=== PATIENT | male | born 1985 | race Caucasian/White ===

== ENCOUNTER 2021-08-22 09:35 | Observation (INO) | payer OTHER ==
[2021-08-22] MEDS ORDERED: Lasix 40 MG/4 ML IV ONE (10:28)
[2021-08-22] MEDS ORDERED: Lasix 40 MG/4 ML ONE (10:46)
[2021-08-22 11:02] LABS: ALBUMIN 4.5 g/dL (3.5-5.0); ALKALINE PHOSPHATASE 86 U/L (38-126); BLOOD UREA NITROGEN 8 mg/dL (9-20); CHLORIDE 99 mmol/L (98-107); Carbon Dioxide 28 mmol/L (22-30); Creatinine 1 0.59 mg/dL (0.66-1.25); EST GLOMERULAR FILTRATION RATE > 60.0 ML/MIN; Glucose 86 mg/dL (74-106); NT PRO BNP 58.7 pg/mL (0-450); SGOT/AST 40 U/L (17-59); SGPT/ALT 27 U/L (0-50); SODIUM 138 mmol/L (137-145); TROPONIN < 0.012 ng/mL (0.000-0.034); Total Protein 7.8 g/dL (6.3-8.2); Uric Acid 2.7 mg/dL (3.5-7.2)
[2021-08-22 11:15] LABS: Calcium 5.2 mg/dL (8.4-10.2)
[2021-08-22] MEDS ORDERED: Magnesium 1 Gm / 100 Ml D5W*** 100 ML IV ONE ×2 (11:28→12:01)
[2021-08-22] MEDS ORDERED: K-LYTE 25 MEQ PO ONE (11:29)
[2021-08-22] MEDS ORDERED: CALCIUM GLUCONATE IV ONE (11:29)
[2021-08-22] MEDS ORDERED: SODIUM CHLORIDE 0.9% IV ONE (11:29)
[2021-08-22] MEDS ORDERED: Calcium Gluconate 10% 1000 MG IV ONE (11:41)
[2021-08-22] MEDS ORDERED: Sodium Chloride 0.9% 100 ML BAG 100 ML ONE (11:42)
[2021-08-22] MEDS ORDERED: Sodium Chloride 0.9% 1000 ML 1,000 ML ONE (11:42)
[2021-08-22] MEDS ORDERED: K-LYTE 25 MEQ ONE (11:42)
[2021-08-22] MEDS ORDERED: Sodium Chloride 0.9% 1000 ML 1,000 ML IV SCH (11:45)
[2021-08-22] MEDS ORDERED: POTASSIUM CHLORIDE 20 mEq IN WATER 100ML 100 ML IV ONE ×2 (12:01→14:57)
[2021-08-22] MEDS: POTASSIUM CHLORIDE 20 mEq IN WATER 100ML 20 MEQ/100 ML BAG IV SCH ×2 (12:04→14:59)
[2021-08-22 12:27] LABS: Hematocrit 46.5 % (42-50); Hemoglobin 15.8 gm/dl (12.5-18.0); Mean Cell Volume 87.1 fl (78-100); Mean Corpuscular Hemoglobin 29.6 pg (26-32); Mean Platelet Volume 10.4 fl (7.5-11.0); Platelet Count 198 K/mm3 (150-450); Red Blood Count 5.34 M/mm3 (4.1-5.6); Red Cell Distribution Width 12.8 % (11.5-14.0); White Blood Count 5.5 K/mm3 (4.0-10.5)
[2021-08-22 12:44] LABS: MAGNESIUM 1.6 mg/dL (1.6-2.3); PHOSPHOROUS 4.4 mg/dL (2.5-4.5); TSH, 3RD Generation 2.62 mIU/L (0.47-4.68)
--- NOTE | 2021-08-22 12:54 | ERPHSYRPT ---
- History of Present Illness Time Seen by Provider: 08/22/21 10:18 Source: patient Exam Limitations: no limitations Patient Subjective Stated Complaint: H/o htn, c/o swelling to both ankles and feet and high bp since last night. B/P this am at home was 160/120. Triage Nursing Assessment: AAox3, walked in. c/o swelling to both ankles and feet and high bp since last night. Has h/o htn. takes lisinopril 5mg daily. 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 Patient noticed her blood pressure was in 160s despite taking her routine antihypertensive. Feeling weak fatigued and tired. Denies any sick contact. No chest pain palpitations or shortness of breath. Currently his pressure is in 150s. Timing/Duration: day(s) (2), constant, gradual onset, worse Severity: moderate Modifying Factors: Improves With: nothing Associated Symptoms: malaise, weakness Allergies/Adverse Reactions: promethazine HCl [From Phenergan] Adverse Reaction (Verified 08/22/21 15:53) Home Medications: Levothyroxine Sodium [Synthroid] 137 mcg PO HS 08/16/15 [History] calcitrioL [Calcitriol] 0.25 mcg PO TID 08/16/15 [History] Lisinopril 5 mg [Zestril 5 MG] 5 mg PO DAILY 08/22/21 [History] OXcarbazepine [Trileptal] 600 mg PO HS 08/22/21 [History] Hx Tetanus, Diphtheria Vaccination/Date Given: Yes Hx Influenza Vaccination/Date Given: No Hx Pneumococcal Vaccination/Date Given: No Travel Risk - International Travel Have you traveled outside of the country in past 3 weeks: No - Coronavirus Screening Are you exhibiting any of the following symptoms?: No Close contact with a COVID-19 positive Pt in past 14-21 Days: No - Vaccine Status Have you recieved a Covid-19 vaccination: Yes Annual Campaign Manager: Moderna - Vaccination Dates Date of 2cond Vaccination (if applicable): february 2021 - Review of Systems Constitutional: Fatigue, Weakness Eyes: No Symptoms Ears, Nose, & Throat: No Symptoms Respiratory: No Symptoms Cardiac: Edema Abdominal/Gastrointestinal: No Symptoms Genitourinary Symptoms: No Symptoms Musculoskeletal: No Symptoms Skin: No Symptoms Neurological: No Symptoms Psychological: No Symptoms Endocrine: No Symptoms Hematologic/Lymphatic: No Symptoms Immunological/Allergic: No Symptoms - Past Medical History Pertinent Past Medical History: Yes Neurological History: No Pertinent History ENT History: No Pertinent History Cardiac History: High Cholesterol, Hypertension Respiratory History: Bronchitis Endocrine Medical History: Hypothyroidism Musculoskeletal History: No Pertinent History GI Medical History: Irritable Bowel History: No Pertinent History Psycho-Social History: No Pertinent History Male Reproductive Disorders: No Pertinent History Other Medical History: PSEUDO HYPOPARATHYROIDSM - Past Surgical History Past Surgical History: No Neuro Surgical History: No Pertinent History Cardiac: No Pertinent History Respiratory: No Pertinent History Gastrointestinal: No Pertinent History Genitourinary: No Pertinent History Musculoskeletal: No Pertinent History Male Surgical History: No Pertinent History - Social History Smoking Status: Never smoker Exposure to second hand smoke: No Drug Use: none Patient Lives Alone: No - Nursing Vital Signs Nursing Vital Signs: Initial Vital Signs Temperature 97 F 08/22/21 09:41 Pulse Rate 73 08/22/21 09:41 Respiratory Rate 16 08/22/21 09:41 Blood Pressure 165/128 08/22/21 09:41 O2 Sat by Pulse Oximetry 96 08/22/21 09:41 Pain Scale Pain Intensity 0 - Physical Exam General Appearance: no apparent distress, alert Eye Exam: PERRL/EOMI, eyes nml inspection Ears, Nose, Throat Exam: normal ENT inspection, TMs normal, pharynx normal, moist mucous membranes Neck Exam: normal inspection, non-tender, supple, full range of motion Respiratory Exam: normal breath sounds, lungs clear Cardiovascular Exam: regular rate/rhythm, normal heart sounds Gastrointestinal/Abdomen Exam: soft, normal bowel sounds, No tenderness Back Exam: normal inspection, normal range of motion, No CVA tenderness Extremity Exam: other (Bilateral ankle/feet swelling, nonpitting edema. No calf tenderness. Negative Homans' sign.) Neurologic Exam: alert, oriented x 3, cooperative, battery engineer II-XII nml as tested, normal mood/affect, nml cerebellar function, nml station & gait, sensation nml, other (Positive she [place] sign. Carpopedal spasm reproducible with flexing wrist.), No motor deficits Skin Exam: normal color SpO2 Interpretation: normal SpO2: 96 O2 Delivery: Room Air - Course EKG Interpreted by Me: RATE (72), Sinus Rhythm, NORMAL AXIS, NORMAL INTERVALS, Non-specific ST Changes Ordered Tests: Active Orders 24 hr Category Date Time Status Bedrest ROUTINE Activity 08/22/21 15:48 Active Up With Assistance ROUTINE Activity 08/22/21 15:48 Active New Grad Rn STAT Care 08/22/21 10:27 Completed Code Status Order ROUTINE Care 08/22/21 15:48 Active EKG-ER Only STAT Care 08/22/21 10:27 Completed Fall Protocol Q1H Care 08/22/21 15:48 Active IV Care Q6H Care 08/22/21 15:48 Active IV Insertion STAT Care 08/22/21 10:27 Completed POCT Glucose Check ACHS Care 08/22/21 15:[address] in Observation ROUTINE Care 08/22/21 15:48 Active Goyo Hose, Apply ROUTINE Care 08/22/21 15:48 Active Weight,Daily 0600 Care 08/22/21 15:48 Active House Regular Diet Diet 08/22/21 Dinner Active CHEST 1 VIEW (PORTABLE) Stat Exams 08/22/21 10:27 Completed CBC Stat Lab 08/22/21 10:10 Completed CBC W DIFF AM.LAB Lab 08/23/21 04:00 Ordered CMP AM.LAB Lab 08/23/21 04:00 Ordered CMP Routine Lab 08/22/21 10:10 Completed Calcium, Ionized Stat Lab 08/22/21 11:25 Completed MAGNESIUM Stat Lab 08/22/21 11:38 Completed NT PRO BNP Routine Lab 08/22/21 10:10 Completed PHOSPHOROUS Stat Lab 08/22/21 11:38 Completed TROPONIN Q3H Lab 08/22/21 10:10 Completed TROPONIN Q3H Lab 08/22/21 12:55 Completed TROPONIN Q3H Lab 08/22/21 16:00 Completed TROPONIN Q3H Lab 08/22/21 19:20 Completed TROPONIN Q3H Lab 08/22/21 21:03 Completed TSH [TSH, 3RD Generation] Stat Lab 08/22/21 11:38 Completed Uric Acid Routine Lab 08/22/21 10:10 Completed Medication Summary Generic Name Dose Route Start Last Admin Trade Name Freq PRN Reason Stop Dose Admin Acetaminophen 650 mg 08/22/21 15:48 Acetaminophen 325 Mg Tablet PO 09/21/21 15:47 Q4H PRN PRN PAIN AND/OR FEVER Calcium Carbonate 2 tab 08/22/21 22:00 08/22/21 21:52 Calcium Carbonate 500 Mg/Vitamin D 1 Tab Tablet PO 09/21/21 21:59 2 tab QID SELMA Administration Potassium Chloride/Sodium Chloride 1,000 mls @ 100 mls/hr 08/22/21 15:48 08/22/21 18:56 Sodium Chloride 0.9% W/ 20 Meq Kcl/Liter IV 09/21/21 15:47 100 mls/hr .Q10H SELMA Administration Levothyroxine Sodium 25 mcg 08/22/21 22:00 08/22/21 21:52 Levothyroxine Sodium 25 Mcg Tablet PO 09/21/21 21:59 25 mcg HS SELMA Administration Levothyroxine Sodium 112 mcg 08/22/21 22:00 08/22/21 21:52 Levothyroxine Sodium 112 Mcg Tablet PO 09/21/21 21:59 112 mcg HS SELMA Administration Oxcarbazepine 600 mg 08/22/21 22:00 08/22/21 21:52 Oxcarbazepine 300 Mg Tab PO 09/21/21 21:59 600 mg HS SELMA Administration Pantoprazole Sodium 40 mg 08/23/21 10:00 Pantoprazole 40 Mg Vial IV 09/22/21 09:59 Q24H10 SELMA Discontinued Medications Generic Name Dose Route Start Last Admin Trade Name Freq PRN Reason Stop Dose Admin Calcium Carbonate 1 tab 08/22/21 22:00 Calcium Carbonate 500 Mg/Vitamin D 1 Tab Tablet PO 09/21/21 21:59 TID SELMA Calcium Gluconate Confirm 08/22/21 11:41 Calcium Gluconate 1000 Mg/10 Ml Vial Administered 08/22/21 11:42 Dose 1,000 mg IV .STK-MED ONE Furosemide 40 mg 08/22/21 10:28 08/22/21 10:48 Furosemide 40 Mg/4 Ml Vial IV 08/22/21 10:29 40 mg STAT ONE Administration Furosemide Confirm 08/22/21 10:46 Furosemide 40 Mg/4 Ml Vial Administered 08/22/21 10:47 Dose 40 mg .ROUTE .STK-MED ONE Magnesium Sulfate/Dextrose 100 mls @ 200 mls/hr 08/22/21 11:28 08/22/21 12:04 Magnesium 1 Gm / 100 Ml D5w IV 08/22/21 11:57 200 mls/hr STAT ONE Administration Calcium Gluconate 1,000 mg/ 110 mls @ 220 mls/hr 08/22/21 11:29 08/22/21 11:51 Sodium Chloride IV 08/22/21 11:58 220 mls/hr ONCE ONE Administration Potassium Chloride 20 meq in 100 mls @ 50 mls/hr 08/22/21 11:30 08/22/21 14:59 Potassium Chloride 20 Meq In Water 100ml IV 08/22/21 15:29 50 mls/hr Q2H SELMA Administration Sodium Chloride 1,000 mls @ 100 mls/hr 08/22/21 11:45 08/22/21 11:46 Sodium Chloride 0.9% 1000 Ml IV 09/21/21 11:44 100 mls/hr .Q10H SELMA Administration Sodium Chloride Confirm 08/22/21 11:42 Sodium Chloride 0.9% 100 Ml Bag Administered 08/22/21 11:43 Dose 100 mls @ ud .ROUTE .STK-MED ONE Magnesium Sulfate/Dextrose Confirm 08/22/21 12:01 Magnesium 1 Gm / 100 Ml D5w Administered 08/22/21 12:02 Dose 100 mls @ ud IV .STK-MED ONE Calcium Gluconate 11,000 mg/ 1,110 mls @ 50 mls/hr 08/22/21 13:00 08/22/21 19:50 Sodium Chloride IV 08/23/21 11:11 Not Given .[id number] SELMA Potassium Chloride Confirm 08/22/21 12:01 Potassium Chloride 20 Meq In Water 100ml Administered 08/22/21 12:02 Dose 100 mls @ ud IV .STK-MED ONE Potassium Chloride Confirm 08/22/21 14:57 Potassium Chloride 20 Meq In Water 100ml Administered 08/22/21 14:58 Dose 100 mls @ ud IV .STK-MED ONE Levothyroxine Sodium 112 mcg 08/22/21 22:00 Levothyroxine Sodium 112 Mcg Tablet PO 09/21/21 21:59 HS SELMA Levothyroxine Sodium 125 mcg 08/22/21 22:00 Levothyroxine Sodium 125 Mcg Tablet PO 09/21/21 21:59 HS SELMA Potassium Bicarbonate 50 meq 08/22/21 11:29 08/22/21 11:51 Potassium Bicarbonate 25 Meq Tab PO 08/22/21 11:30 50 meq STAT ONE Administration Potassium Bicarbonate Confirm 08/22/21 11:42 Potassium Bicarbonate 25 Meq Tab Administered 08/22/21 11:43 Dose 50 meq .ROUTE .STK-MED ONE Lab/Rad Data: Laboratory Result Diagrams 08/22/21 10:10 08/22/21 10:10 Laboratory Results 08/22/21 08/22/21 08/22/21 Range/Units 13:42 12:55 11:38 WBC (4.0-10.5) K/mm3 RBC (4.1-5.6) M/mm3 Hgb (12.5-18.0) gm/dl Hct (42-50) % MCV (78-100) fl MCH (26-32) pg MCHC (32-36) g/dl RDW (11.5-14.0) % Plt Count (150-450) K/mm3 MPV (7.5-11.0) fl Ionized Calcium (1.12-1.32) mmol/L Sodium (137-145) mmol/L Potassium (3.5-5.1) mmol/L Chloride (98-107) mmol/L Carbon Dioxide (22-30) mmol/L Anion Gap (5-15) MEQ/L BUN (9-20) mg/dL Creatinine (0.66-1.25) mg/dL Estimated GFR ML/MIN Glucose (74-106) mg/dL Uric Acid (3.5-7.2) mg/dL Calcium (8.4-10.2) mg/dL Phosphorus 4.4 (2.5-4.5) mg/dL Magnesium 1.6 (1.6-2.3) mg/dL Total Bilirubin (0.2-1.3) mg/dL AST (17-59) U/L ALT (0-50) U/L Alkaline Phosphatase (38-126) U/L Troponin I < 0.012 (0.000-0.034) ng/mL NT-Pro-B Natriuret Pep (0-450) pg/mL Serum Total Protein (6.3-8.2) g/dL Albumin (3.5-5.0) g/dL TSH 3rd Generation 2.620 (0.47-4.68) mIU/L Influenza Type A Ag NEGATIVE (NEGATIVE) Influenza Type B Ag NEGATIVE (NEGATIVE) RSV (PCR) NEGATIVE (Negative) SARS-CoV-2 (PCR) NEGATIVE (NEGATIVE) 08/22/21 08/22/21 08/22/21 Range/Units 11:25 10:10 10:10 WBC 5.5 (4.0-10.5) K/mm3 RBC 5.34 (4.1-5.6) M/mm3 Hgb 15.8 (12.5-18.0) gm/dl Hct 46.5 (42-50) % MCV 87.1 (78-100) fl MCH 29.6 (26-32) pg MCHC 34.0 (32-36) g/dl RDW 12.8 (11.5-14.0) % Plt Count 198 (150-450) K/mm3 MPV 10.4 (7.5-11.0) fl Ionized Calcium 0.71 L* (1.12-1.32) mmol/L Sodium 138 (137-145) mmol/L Potassium 3.0 L* (3.5-5.1) mmol/L Chloride 99 (98-107) mmol/L Carbon Dioxide 28 (22-30) mmol/L Anion Gap 14.0 (5-15) MEQ/L BUN 8 L (9-20) mg/dL Creatinine 0.59 L (0.66-1.25) mg/dL Estimated GFR > 60.0 ML/MIN Glucose 86 (74-106) mg/dL Uric Acid 2.7 L (3.5-7.2) mg/dL Calcium 5.2 L* (8.4-10.2) mg/dL Phosphorus (2.5-4.5) mg/dL Magnesium (1.6-2.3) mg/dL Total Bilirubin 0.50 (0.2-1.3) mg/dL AST 40 (17-59) U/L ALT 27 (0-50) U/L Alkaline Phosphatase 86 (38-126) U/L Troponin I < 0.012 (0.000-0.034) ng/mL NT-Pro-B Natriuret Pep 58.7 (0-450) pg/mL Serum Total Protein 7.8 (6.3-8.2) g/dL Albumin 4.5 (3.5-5.0) g/dL TSH 3rd Generation (0.47-4.68) mIU/L Influenza Type A Ag (NEGATIVE) Influenza Type B Ag (NEGATIVE) RSV (PCR) (Negative) SARS-CoV-2 (PCR) (NEGATIVE) - Progress Progress: improved Progress Note: 08/22/21 12:50 35 years old is evaluated for bilateral ankle swelling with elevated pressure. EKG showed sinus rhythm without any ST elevation. QT interval on the upper side of normal. Work-up showed hypokalemia of 3.2 with hypocalcemia of 5.2. Given IV calcium gluconate. He is also given magnesium. Chest x-ray did not show any acute finding reviewed by me. Normal BNP and troponin. Parathyroid work-up is pending. I believe patient needs IV infusion of calcium. Discussed with Dr. Hudson and patient is being admitted for replacement and will be rechecked later. Discussed with : Sia Counseled pt/family regarding: lab results, diagnosis, rad results - Departure Departure Disposition: Observation Clinical Impression: Hypocalcemia, Hypokalemia Condition: Stable Critical Care Time: No
[2021-08-22] MEDS ORDERED: CALCIUM GLUCONATE IV SCH (13:00)
[2021-08-22] MEDS ORDERED: SODIUM CHLORIDE 0.9% IV SCH (13:00)
[2021-08-22 14:24] LABS: INFLUENZA A NEGATIVE (NEGATIVE); INFLUENZA B NEGATIVE (NEGATIVE); RESPIRATORY SYNCTIAL VIRUS NEGATIVE (Negative); SARS-CoV-2 Xpert Express NEGATIVE (NEGATIVE)
[2021-08-22] MEDS ORDERED: TYLENOL 325 MG PO PRN (15:48)
--- NOTE | 2021-08-22 18:04 | PCM.HP ---
History of Present Illness - Chief Complaint Chief Complaint: Hypocalcemia History of Present Illness: is a 35 year old male with a history of pseudohypopararthyroidism, he is seen by endocrinology in [place] and nephrology with Dr Davila although he has not been seen recently or had any labs. He presented to the ER with swelling in the feet and legs and discomfort associated with the swelling and elevated blood pressures at home. He takes calcitriol daily but has not taken an y calcium in a year, he thought if he was taking his calcitriol he would not need calcium. He has had seizures in the past which I suspect were related to profound hypocalcemia, sees Dr Fried for seizure history. - Review of Systems Constitutional: No Symptoms Cardiac: Edema Abdominal/Gastrointestinal: No Abdominal Pain, No Nausea, No Vomiting, No Diarrhea Genitourinary Symptoms: No Dysuria Skin: No Rash Neurological: No Dizziness, No Focal Weakness, No Sensory Changes All Other Systems: Reviewed and Negative Medications & Allergies Home Medications: Home Medication List Levothyroxine Sodium [Synthroid] 137 mcg PO DAILY 08/16/15 [History Confirmed 08/22/21] calcitrioL [Calcitriol] 0.25 mcg PO TID 08/16/15 [History Confirmed 08/22/21] Lisinopril 5 mg [Zestril 5 MG] 5 mg PO DAILY 08/22/21 [History Confirmed 08/22/21] OXcarbazepine [Trileptal] 600 mg PO DAILY 08/22/21 [History Confirmed 08/22/21] Allergies/Adverse Reactions: Allergies Allergy/AdvReac Type Severity Reaction Status Date / Time promethazine HCl AdvReac Verified 08/22/21 15:53 [From Phenergan] - Past Medical History Past Medical History: Yes Neurological History: No Pertinent History ENT History: No Pertinent History Cardiac History: High Cholesterol, Hypertension Respiratory History: Bronchitis Endocrine Medical History: Hypothyroidism Musculoskelatal History: No Pertinent History GI Medical History: Irritable Bowel History: No Pertinent History Pyscho-Social History: No Pertinent History Male Reproductive Disorders: No Pertinent History Comment: PSEUDO HYPOPARATHYROIDSM - Past Surgical History Past Surgical History: No Neuro Surgical History: No Pertinent History Cardiac History: No Pertinent History Respiratory Surgery: No Pertinent History GI Surgical History: No Pertinent History Genitourinary Surgical Hx: No Pertinent History Musculskeletal Surgical Hx: No Pertinent History Male Surgical History: Vasectomy Other Surgical History: COLONOSCOPY - Social History Smoking Status: Never smoker Exposure to second hand smoke: No Alcohol: Rarely Drug Use: none - Physical Exam Vital Signs: Vital Signs - 24 hr Temp Pulse Resp BP Pulse Ox 08/22/21 15:48 96.7 F 82 20 120/77 96 08/22/21 15:00 86 19 127/82 96 08/22/21 14:00 72 16 108/81 96 08/22/21 13:06 72 16 127/71 95 08/22/21 12:54 96 08/22/21 12:10 84 18 137/87 96 08/22/21 11:57 80 16 97 08/22/21 09:41 97 F 73 16 165/128 96 General Appearance: no apparent distress Neurologic Exam: alert, oriented x 3 Respiratory Exam: normal breath sounds, lungs clear, No respiratory distress Cardiovascular Exam: regular rate/rhythm, normal heart sounds, normal peripheral pulses Extremity Exam: pedal edema Skin Exam: normal color Results - Labs Lab/Micro Results: Lab Results-Last 24 Hours 08/22/21 08/22/21 08/22/21 Range/Units 10:10 10:10 11:25 WBC 5.5 (4.0-10.5) K/mm3 RBC 5.34 (4.1-5.6) M/mm3 Hgb 15.8 (12.5-18.0) gm/dl Hct 46.5 (42-50) % MCV 87.1 (78-100) fl MCH 29.6 (26-32) pg MCHC 34.0 (32-36) g/dl RDW 12.8 (11.5-14.0) % Plt Count 198 (150-450) K/mm3 MPV 10.4 (7.5-11.0) fl Ionized Calcium 0.71 L* (1.12-1.32) mmol/L Sodium 138 (137-145) mmol/L Potassium 3.0 L* (3.5-5.1) mmol/L Chloride 99 (98-107) mmol/L Carbon Dioxide 28 (22-30) mmol/L Anion Gap 14.0 (5-15) MEQ/L BUN 8 L (9-20) mg/dL Creatinine 0.59 L (0.66-1.25) mg/dL Estimated GFR > 60.0 ML/MIN Glucose 86 (74-106) mg/dL POC Glucometer (74 to 106) mg/dL Uric Acid 2.7 L (3.5-7.2) mg/dL Calcium 5.2 L* (8.4-10.2) mg/dL Phosphorus (2.5-4.5) mg/dL Magnesium (1.6-2.3) mg/dL Total Bilirubin 0.50 (0.2-1.3) mg/dL AST 40 (17-59) U/L ALT 27 (0-50) U/L Alkaline Phosphatase 86 (38-126) U/L Troponin I < 0.012 (0.000-0.034) ng/mL NT-Pro-B Natriuret Pep 58.7 (0-450) pg/mL Serum Total Protein 7.8 (6.3-8.2) g/dL Albumin 4.5 (3.5-5.0) g/dL TSH 3rd Generation (0.47-4.68) mIU/L Influenza Type A Ag (NEGATIVE) Influenza Type B Ag (NEGATIVE) RSV (PCR) (Negative) SARS-CoV-2 (PCR) (NEGATIVE) 08/22/21 08/22/21 08/22/21 Range/Units 11:38 12:55 13:42 WBC (4.0-10.5) K/mm3 RBC (4.1-5.6) M/mm3 Hgb (12.5-18.0) gm/dl Hct (42-50) % MCV (78-100) fl MCH (26-32) pg MCHC (32-36) g/dl RDW (11.5-14.0) % Plt Count (150-450) K/mm3 MPV (7.5-11.0) fl Ionized Calcium (1.12-1.32) mmol/L Sodium (137-145) mmol/L Potassium (3.5-5.1) mmol/L Chloride (98-107) mmol/L Carbon Dioxide (22-30) mmol/L Anion Gap (5-15) MEQ/L BUN (9-20) mg/dL Creatinine (0.66-1.25) mg/dL Estimated GFR ML/MIN Glucose (74-106) mg/dL POC Glucometer (74 to 106) mg/dL Uric Acid (3.5-7.2) mg/dL Calcium (8.4-10.2) mg/dL Phosphorus 4.4 (2.5-4.5) mg/dL Magnesium 1.6 (1.6-2.3) mg/dL Total Bilirubin (0.2-1.3) mg/dL AST (17-59) U/L ALT (0-50) U/L Alkaline Phosphatase (38-126) U/L Troponin I < 0.012 (0.000-0.034) ng/mL NT-Pro-B Natriuret Pep (0-450) pg/mL Serum Total Protein (6.3-8.2) g/dL Albumin (3.5-5.0) g/dL TSH 3rd Generation 2.620 (0.47-4.68) mIU/L Influenza Type A Ag NEGATIVE (NEGATIVE) Influenza Type B Ag NEGATIVE (NEGATIVE) RSV (PCR) NEGATIVE (Negative) SARS-CoV-2 (PCR) NEGATIVE (NEGATIVE) 08/22/21 08/22/21 Range/Units 16:00 17:09 WBC (4.0-10.5) K/mm3 RBC (4.1-5.6) M/mm3 Hgb (12.5-18.0) gm/dl Hct (42-50) % MCV (78-100) fl MCH (26-32) pg MCHC (32-36) g/dl RDW (11.5-14.0) % Plt Count (150-450) K/mm3 MPV (7.5-11.0) fl Ionized Calcium (1.12-1.32) mmol/L Sodium (137-145) mmol/L Potassium (3.5-5.1) mmol/L Chloride (98-107) mmol/L Carbon Dioxide (22-30) mmol/L Anion Gap (5-15) MEQ/L BUN (9-20) mg/dL Creatinine (0.66-1.25) mg/dL Estimated GFR ML/MIN Glucose (74-106) mg/dL POC Glucometer 113 H (74 to 106) mg/dL Uric Acid (3.5-7.2) mg/dL Calcium (8.4-10.2) mg/dL Phosphorus (2.5-4.5) mg/dL Magnesium (1.6-2.3) mg/dL Total Bilirubin (0.2-1.3) mg/dL AST (17-59) U/L ALT (0-50) U/L Alkaline Phosphatase (38-126) U/L Troponin I < 0.012 (0.000-0.034) ng/mL NT-Pro-B Natriuret Pep (0-450) pg/mL Serum Total Protein (6.3-8.2) g/dL Albumin (3.5-5.0) g/dL TSH 3rd Generation (0.47-4.68) mIU/L Influenza Type A Ag (NEGATIVE) Influenza Type B Ag (NEGATIVE) RSV (PCR) (Negative) SARS-CoV-2 (PCR) (NEGATIVE) Accuchecks Date 08/22/21 Time 17:11 - Radiology Impressions Radiology Exams & Impressions: Radiology Procedures Category Date Time Status CHEST 1 VIEW (PORTABLE) Stat Exams 08/22/21 10:27 Taken Assessment/Plan (1) Hypocalcemia Current Visit: Yes Status: Acute Assessment & Plan: received IV calcium at admission, he is relatively asymptomatic other than swelling and hypertension. I suspect this is chronic, will begin replacement with po calcium carbonate, continue calcitriol. will consult nephrology as he follows with Dr Davila. Code(s): E83.51 - HYPOCALCEMIA (2) Pseudo-hypoparathyroidism Current Visit: Yes Status: Acute Code(s): E20.1 - PSEUDOHYPOPARATHYROIDISM (3) Seizure Current Visit: Yes Status: Acute Assessment & Plan: continue home trileptal Code(s): R56.9 - UNSPECIFIED CONVULSIONS
[2021-08-22] MEDS: Sodium Chloride 0.9% W/ 20 mEq KCl/LITER 1,000 ML IV SCH (18:56)
--- NOTE | 2021-08-22 18:57 | XRAY ---
Indication: Elevated blood pressure. Feet swelling. Comparison: None Portable chest demonstrates normal heart, lungs, and bony thorax.
[2021-08-22] MEDS: SYNTHROID 25 MCG PO SCH (21:52)
[2021-08-22] MEDS: SYNTHROID 112 MCG PO SCH (21:52)
[2021-08-22] MEDS: Trileptal 300 MG Tablet PO SCH (21:52)
[2021-08-22] MEDS ORDERED: Calcium 500MG W/Vit D Tablet PO SCH ×2 (22:00)
[2021-08-22] MEDS ORDERED: SYNTHROID 125 MCG PO SCH (22:00)
[2021-08-22] MEDS ORDERED: SYNTHROID 112 MCG PO SCH (22:00)
[2021-08-23] MEDS: Sodium Chloride 0.9% W/ 20 mEq KCl/LITER 1,000 ML IV SCH ×3 (01:47→22:02)
[2021-08-23 07:00] LABS: BASOPHIL % 0.1 % (0.0-0.4); Basophil (Absolute #) 0.01 (0-0.4); Eosinophil % 1.2 % (0.00-5.0); Eosinophil (Absolute #) 0.08 (0-0.5); Hematocrit 47.2 % (42-50); Hemoglobin 15.7 gm/dl (12.5-18.0); Lymphocyte (Absolute #) 1.55 (1.0-4.6); Lymphocytes % 22.3 % (24.0-44.0); Mean Cell Volume 88.7 fl (78-100); Mean Corpuscular Hemoglobin 29.5 pg (26-32); Mean Corpuscular Hgb Concent. 33.3 g/dl (32-36); Mean Platelet Volume 10.8 fl (7.5-11.0); Monocyte (Absolute #) 0.31 (0.0-1.3); Monocytes % 4.5 % (0.0-12.0); Neutrophil % 71.9 % (36.0-66.0); Platelet Count 189 K/mm3 (150-450); Red Blood Count 5.32 M/mm3 (4.1-5.6); Red Cell Distribution Width 13.3 % (11.5-14.0)
[2021-08-23 07:22] LABS: ALKALINE PHOSPHATASE 82 U/L (38-126); ANION GAP 12.5 MEQ/L (5-15); BLOOD UREA NITROGEN 11 mg/dL (9-20); CHLORIDE 103 mmol/L (98-107); Carbon Dioxide 28 mmol/L (22-30); Creatinine 1 0.77 mg/dL (0.66-1.25); EST GLOMERULAR FILTRATION RATE > 60.0 ML/MIN; Glucose 81 mg/dL (74-106); Potassium 4.5 mmol/L (3.5-5.1); SGOT/AST 34 U/L (17-59); SGPT/ALT 23 U/L (0-50); SODIUM 138 mmol/L (137-145); Total Protein 6.8 g/dL (6.3-8.2)
--- NOTE | 2021-08-23 07:24 | PCM.NOTE ---
Date and Time: 08/23/21721 Subjective Assessment: patient feels well this morning, no new complaints. swelling improved with lasix on arrival. bp stable Objective Exam General Appearance: no apparent distress Neurologic Exam: alert, oriented x 3 Respiratory Exam: normal breath sounds, lungs clear, No respiratory distress Cardiovascular Exam: regular rate/rhythm, normal heart sounds Gastrointestinal/Abdomen Exam: soft, No tenderness, No mass Extremity Exam: normal inspection, normal range of motion OBJECTIVE DATA Vital Signs: Vital Signs - 24 hr Temp Pulse Resp BP Pulse Ox 08/23/21 07:14 97.7 F 56 L 16 140/93 97 08/23/21 04:00 97.3 F 67 19 138/90 96 08/23/21 01:08 96 08/22/21 23:59 97.9 F 78 19 122/77 96 08/22/21 19:30 98.2 F 81 20 116/83 96 08/22/21 15:48 96.7 F 82 20 120/77 96 08/22/21 15:00 86 19 127/82 96 08/22/21 14:00 72 16 108/81 96 08/22/21 13:06 72 16 127/71 95 08/22/21 12:10 84 18 137/87 96 08/22/21 11:57 80 16 97 08/22/21 09:41 97 F 73 16 165/128 96 Pain Assessment - Last Documented Pain Intensity 0 Intake and Output: Intake & Output 08/20/21 08/21/21 08/22/21 08/23/21 11:59 11:59 11:59 11:59 Intake Total 1843 Output Total 2300 Balance -457 Weight 74.843 kg 84.4 kg Lab Results: Lab Results-Last 24 Hours 08/22/21 08/22/21 08/22/21 Range/Units 10:10 10:10 11:25 WBC 5.5 (4.0-10.5) K/mm3 RBC 5.34 (4.1-5.6) M/mm3 Hgb 15.8 (12.5-18.0) gm/dl Hct 46.5 (42-50) % MCV 87.1 (78-100) fl MCH 29.6 (26-32) pg MCHC 34.0 (32-36) g/dl RDW 12.8 (11.5-14.0) % Plt Count 198 (150-450) K/mm3 MPV 10.4 (7.5-11.0) fl Gran % (36.0-66.0) % Eos # (Auto) (0-0.5) Absolute Lymphs (auto) (1.0-4.6) Absolute Monos (auto) (0.0-1.3) Lymphocytes % (24.0-44.0) % Monocytes % (0.0-12.0) % Eosinophils % (0.00-5.0) % Basophils % (0.0-0.4) % Absolute Granulocytes (1.4-6.9) Basophils # (0-0.4) Ionized Calcium 0.71 L* (1.12-1.32) mmol/L Sodium 138 (137-145) mmol/L Potassium 3.0 L* (3.5-5.1) mmol/L Chloride 99 (98-107) mmol/L Carbon Dioxide 28 (22-30) mmol/L Anion Gap 14.0 (5-15) MEQ/L BUN 8 L (9-20) mg/dL Creatinine 0.59 L (0.66-1.25) mg/dL Estimated GFR > 60.0 ML/MIN Glucose 86 (74-106) mg/dL POC Glucometer (74 to 106) mg/dL Uric Acid 2.7 L (3.5-7.2) mg/dL Calcium 5.2 L* (8.4-10.2) mg/dL Phosphorus (2.5-4.5) mg/dL Magnesium (1.6-2.3) mg/dL Total Bilirubin 0.50 (0.2-1.3) mg/dL AST 40 (17-59) U/L ALT 27 (0-50) U/L Alkaline Phosphatase 86 (38-126) U/L Troponin I < 0.012 (0.000-0.034) ng/mL NT-Pro-B Natriuret Pep 58.7 (0-450) pg/mL Serum Total Protein 7.8 (6.3-8.2) g/dL Albumin 4.5 (3.5-5.0) g/dL TSH 3rd Generation (0.47-4.68) mIU/L Influenza Type A Ag (NEGATIVE) Influenza Type B Ag (NEGATIVE) RSV (PCR) (Negative) SARS-CoV-2 (PCR) (NEGATIVE) 08/22/21 08/22/21 08/22/21 Range/Units 11:38 12:55 13:42 WBC (4.0-10.5) K/mm3 RBC (4.1-5.6) M/mm3 Hgb (12.5-18.0) gm/dl Hct (42-50) % MCV (78-100) fl MCH (26-32) pg MCHC (32-36) g/dl RDW (11.5-14.0) % Plt Count (150-450) K/mm3 MPV (7.5-11.0) fl Gran % (36.0-66.0) % Eos # (Auto) (0-0.5) Absolute Lymphs (auto) (1.0-4.6) Absolute Monos (auto) (0.0-1.3) Lymphocytes % (24.0-44.0) % Monocytes % (0.0-12.0) % Eosinophils % (0.00-5.0) % Basophils % (0.0-0.4) % Absolute Granulocytes (1.4-6.9) Basophils # (0-0.4) Ionized Calcium (1.12-1.32) mmol/L Sodium (137-145) mmol/L Potassium (3.5-5.1) mmol/L Chloride (98-107) mmol/L Carbon Dioxide (22-30) mmol/L Anion Gap (5-15) MEQ/L BUN (9-20) mg/dL Creatinine (0.66-1.25) mg/dL Estimated GFR ML/MIN Glucose (74-106) mg/dL POC Glucometer (74 to 106) mg/dL Uric Acid (3.5-7.2) mg/dL Calcium (8.4-10.2) mg/dL Phosphorus 4.4 (2.5-4.5) mg/dL Magnesium 1.6 (1.6-2.3) mg/dL Total Bilirubin (0.2-1.3) mg/dL AST (17-59) U/L ALT (0-50) U/L Alkaline Phosphatase (38-126) U/L Troponin I < 0.012 (0.000-0.034) ng/mL NT-Pro-B Natriuret Pep (0-450) pg/mL Serum Total Protein (6.3-8.2) g/dL Albumin (3.5-5.0) g/dL TSH 3rd Generation 2.620 (0.47-4.68) mIU/L Influenza Type A Ag NEGATIVE (NEGATIVE) Influenza Type B Ag NEGATIVE (NEGATIVE) RSV (PCR) NEGATIVE (Negative) SARS-CoV-2 (PCR) NEGATIVE (NEGATIVE) 08/22/21 08/22/21 08/22/21 Range/Units 16:00 17:09 19:20 WBC (4.0-10.5) K/mm3 RBC (4.1-5.6) M/mm3 Hgb (12.5-18.0) gm/dl Hct (42-50) % MCV (78-100) fl MCH (26-32) pg MCHC (32-36) g/dl RDW (11.5-14.0) % Plt Count (150-450) K/mm3 MPV (7.5-11.0) fl Gran % (36.0-66.0) % Eos # (Auto) (0-0.5) Absolute Lymphs (auto) (1.0-4.6) Absolute Monos (auto) (0.0-1.3) Lymphocytes % (24.0-44.0) % Monocytes % (0.0-12.0) % Eosinophils % (0.00-5.0) % Basophils % (0.0-0.4) % Absolute Granulocytes (1.4-6.9) Basophils # (0-0.4) Ionized Calcium (1.12-1.32) mmol/L Sodium (137-145) mmol/L Potassium (3.5-5.1) mmol/L Chloride (98-107) mmol/L Carbon Dioxide (22-30) mmol/L Anion Gap (5-15) MEQ/L BUN (9-20) mg/dL Creatinine (0.66-1.25) mg/dL Estimated GFR ML/MIN Glucose (74-106) mg/dL POC Glucometer 113 H (74 to 106) mg/dL Uric Acid (3.5-7.2) mg/dL Calcium (8.4-10.2) mg/dL Phosphorus (2.5-4.5) mg/dL Magnesium (1.6-2.3) mg/dL Total Bilirubin (0.2-1.3) mg/dL AST (17-59) U/L ALT (0-50) U/L Alkaline Phosphatase (38-126) U/L Troponin I < 0.012 < 0.012 (0.000-0.034) ng/mL NT-Pro-B Natriuret Pep (0-450) pg/mL Serum Total Protein (6.3-8.2) g/dL Albumin (3.5-5.0) g/dL TSH 3rd Generation (0.47-4.68) mIU/L Influenza Type A Ag (NEGATIVE) Influenza Type B Ag (NEGATIVE) RSV (PCR) (Negative) SARS-CoV-2 (PCR) (NEGATIVE) 08/22/21 08/22/21 08/23/21 Range/Units 21:03 21:03 05:40 WBC 7.0 (4.0-10.5) K/mm3 RBC 5.32 (4.1-5.6) M/mm3 Hgb 15.7 (12.5-18.0) gm/dl Hct 47.2 (42-50) % MCV 88.7 (78-100) fl MCH 29.5 (26-32) pg MCHC 33.3 (32-36) g/dl RDW 13.3 (11.5-14.0) % Plt Count 189 (150-450) K/mm3 MPV 10.8 (7.5-11.0) fl Gran % 71.9 H (36.0-66.0) % Eos # (Auto) 0.08 (0-0.5) Absolute Lymphs (auto) 1.55 (1.0-4.6) Absolute Monos (auto) 0.31 (0.0-1.3) Lymphocytes % 22.3 L (24.0-44.0) % Monocytes % 4.5 (0.0-12.0) % Eosinophils % 1.2 (0.00-5.0) % Basophils % 0.1 (0.0-0.4) % Absolute Granulocytes 5.00 (1.4-6.9) Basophils # 0.01 (0-0.4) Ionized Calcium (1.12-1.32) mmol/L Sodium (137-145) mmol/L Potassium 3.6 (3.5-5.1) mmol/L Chloride (98-107) mmol/L Carbon Dioxide (22-30) mmol/L Anion Gap (5-15) MEQ/L BUN (9-20) mg/dL Creatinine (0.66-1.25) mg/dL Estimated GFR ML/MIN Glucose (74-106) mg/dL POC Glucometer (74 to 106) mg/dL Uric Acid (3.5-7.2) mg/dL Calcium (8.4-10.2) mg/dL Phosphorus (2.5-4.5) mg/dL Magnesium (1.6-2.3) mg/dL Total Bilirubin (0.2-1.3) mg/dL AST (17-59) U/L ALT (0-50) U/L Alkaline Phosphatase (38-126) U/L Troponin I < 0.012 (0.000-0.034) ng/mL NT-Pro-B Natriuret Pep (0-450) pg/mL Serum Total Protein (6.3-8.2) g/dL Albumin (3.5-5.0) g/dL TSH 3rd Generation (0.47-4.68) mIU/L Influenza Type A Ag (NEGATIVE) Influenza Type B Ag (NEGATIVE) RSV (PCR) (Negative) SARS-CoV-2 (PCR) (NEGATIVE) Radiology Exams: Radiology Procedures Category Date Time Status CHEST 1 VIEW (PORTABLE) Stat Exams 08/22/21 10:27 Completed Assessment/Plan (1) Hypocalcemia Current Visit: Yes Status: Acute Assessment & Plan: replacing with po calcium received IV yesterday. repeat chemistry still pending this am Code(s): E83.51 - HYPOCALCEMIA (2) Pseudo-hypoparathyroidism Current Visit: Yes Status: Acute Assessment & Plan: nephrology consult pending, patient was not taking any supplemental calcium prior to arrival and has not had recent labs Code(s): E20.1 - PSEUDOHYPOPARATHYROIDISM (3) Seizure Current Visit: Yes Status: Acute Code(s): R56.9 - UNSPECIFIED CONVULSIONS
[2021-08-23 07:27] LABS: Calcium 5.6 mg/dL (8.4-10.2)
[2021-08-23] MEDS: Calcium 500MG W/Vit D Tablet PO SCH ×4 (08:53→21:13)
[2021-08-23] MEDS: Zestril 5 MG PO SCH (08:54)
[2021-08-23] MEDS: NON-FORMULARY ITEM PO SCH ×3 (08:54→21:13)
[2021-08-23] MEDS ORDERED: PROTONIX 40 MG IV IV SCH (10:00)
[2021-08-23] MEDS ORDERED: CALCITRIOL 0.25 MCG PO SCH (10:00)
[2021-08-23] MEDS: SYNTHROID 112 MCG PO SCH (21:13)
[2021-08-23] MEDS: SYNTHROID 25 MCG PO SCH (21:13)
[2021-08-23] MEDS: Trileptal 300 MG Tablet PO SCH (21:13)
[2021-08-24 05:56] LABS: Absolute Neutrophil Ct (ANC) 4.97 (1.4-6.9); BASOPHIL % 0.1 % (0.0-0.4); Basophil (Absolute #) 0.01 (0-0.4); Eosinophil % 1.3 % (0.00-5.0); Eosinophil (Absolute #) 0.09 (0-0.5); Hematocrit 46.4 % (42-50); Hemoglobin 15.2 gm/dl (12.5-18.0); Lymphocytes % 23.6 % (24.0-44.0); Mean Cell Volume 89.7 fl (78-100); Mean Corpuscular Hemoglobin 29.4 pg (26-32); Mean Corpuscular Hgb Concent. 32.8 g/dl (32-36); Mean Platelet Volume 10.5 fl (7.5-11.0); Monocyte (Absolute #) 0.42 (0.0-1.3); Monocytes % 5.8 % (0.0-12.0); Neutrophil % 69.2 % (36.0-66.0); Platelet Count 179 K/mm3 (150-450); Red Blood Count 5.17 M/mm3 (4.1-5.6); Red Cell Distribution Width 13.3 % (11.5-14.0); White Blood Count 7.2 K/mm3 (4.0-10.5)
[2021-08-24 07:02] LABS: ALBUMIN 3.9 g/dL (3.5-5.0); ALKALINE PHOSPHATASE 75 U/L (38-126); ANION GAP 12.7 MEQ/L (5-15); BLOOD UREA NITROGEN 7 mg/dL (9-20); CHLORIDE 102 mmol/L (98-107); Carbon Dioxide 27 mmol/L (22-30); Creatinine 1 0.63 mg/dL (0.66-1.25); EST GLOMERULAR FILTRATION RATE > 60.0 ML/MIN; Glucose 81 mg/dL (74-106); MAGNESIUM 1.7 mg/dL (1.6-2.3); Potassium 3.4 mmol/L (3.5-5.1); SGOT/AST 32 U/L (17-59); SGPT/ALT 23 U/L (0-50); SODIUM 139 mmol/L (137-145); Total Protein 6.9 g/dL (6.3-8.2)
[2021-08-24 07:14] LABS: Calcium 5.8 mg/dL (8.4-10.2)
[2021-08-24] MEDS: Sodium Chloride 0.9% W/ 20 mEq KCl/LITER 1,000 ML IV SCH (07:59)
--- NOTE | 2021-08-24 08:19 | PCM.DS ---
Discharge Summary Date of Admission: 08/22/21 15:44 Admitting Physician: ROSALEE ARANDA Consults: Consults on Case 08/22/21 18:04 Consult Nephrology ROUTINE 08/23/21 08:11 Consult Nephrology ROUTINE Primary Care Provider: ROSALEE ARANDA Allergies Allergies promethazine HCl [From Phenergan] Adverse Reaction (Verified 08/22/21 15:53) Hospital Summary - Hospital Course Hospital Course: patient arrived with swelling and elevated bp, swelling improved. low calcium, no taking calcium with calcitriol for pseudohypoparathyroidism. - Vitals & Intake/Output Vital Signs: Vital Signs Temperature 97.8 F 08/24/21 04:00 Pulse Rate 72 08/24/21 04:00 Respiratory Rate 19 08/24/21 04:00 Blood Pressure 144/97 08/24/21 04:00 O2 Sat by Pulse Oximetry 96 08/24/21 04:00 Intake & Output: Intake & Output 08/21/21 08/22/21 08/23/21 08/24/21 11:59 11:59 11:59 11:59 Intake Total 1883 4621 Output Total 2300 2225 Balance -417 8110 Weight 74.843 kg 84.4 kg - Lab Result Diagrams: 08/24/21 05:00 08/24/21 05:00 Lab Results-Last 24 Hrs: Lab Results-Last 24 Hours 08/24/21 08/24/21 Range/Units 05:00 05:00 WBC 7.2 (4.0-10.5) K/mm3 RBC 5.17 (4.1-5.6) M/mm3 Hgb 15.2 (12.5-18.0) gm/dl Hct 46.4 (42-50) % MCV 89.7 (78-100) fl MCH 29.4 (26-32) pg MCHC 32.8 (32-36) g/dl RDW 13.3 (11.5-14.0) % Plt Count 179 (150-450) K/mm3 MPV 10.5 (7.5-11.0) fl Gran % 69.2 H (36.0-66.0) % Eos # (Auto) 0.09 (0-0.5) Absolute Lymphs (auto) 1.70 (1.0-4.6) Absolute Monos (auto) 0.42 (0.0-1.3) Lymphocytes % 23.6 L (24.0-44.0) % Monocytes % 5.8 (0.0-12.0) % Eosinophils % 1.3 (0.00-5.0) % Basophils % 0.1 (0.0-0.4) % Absolute Granulocytes 4.97 (1.4-6.9) Basophils # 0.01 (0-0.4) Sodium 139 (137-145) mmol/L Potassium 3.4 L D (3.5-5.1) mmol/L Chloride 102 (98-107) mmol/L Carbon Dioxide 27 (22-30) mmol/L Anion Gap 12.7 (5-15) MEQ/L BUN 7 L (9-20) mg/dL Creatinine 0.63 L (0.66-1.25) mg/dL Estimated GFR > 60.0 ML/MIN Glucose 81 (74-106) mg/dL Calcium 5.8 L* (8.4-10.2) mg/dL Magnesium 1.7 (1.6-2.3) mg/dL Total Bilirubin 0.60 (0.2-1.3) mg/dL AST 32 (17-59) U/L ALT 23 (0-50) U/L Alkaline Phosphatase 75 (38-126) U/L Serum Total Protein 6.9 (6.3-8.2) g/dL Albumin 3.9 (3.5-5.0) g/dL - Radiology Exams Ordered Rad Exams-Entire Visit: Radiology Procedures Category Date Time Status CHEST 1 VIEW (PORTABLE) Stat Exams 08/22/21 10:27 Completed Discharge Exam General Appearance: no apparent distress, alert Neurologic Exam: alert, oriented x 3 Respiratory Exam: normal breath sounds, lungs clear, No respiratory distress Cardiovascular Exam: regular rate/rhythm, normal heart sounds Gastrointestinal/Abdomen Exam: soft, No tenderness, No mass Extremity Exam: normal inspection, normal range of motion Skin Exam: normal color, warm, dry Final Diagnosis/Problem List - Final Discharge Diagnosis/Problem (1) Hypocalcemia Current Visit: Yes Status: Acute Assessment & Plan: home on po calcium, slowly improving. Code(s): E83.51 - HYPOCALCEMIA (2) Pseudo-hypoparathyroidism Current Visit: Yes Status: Acute Code(s): E20.1 - PSEUDOHYPOPARATHYROIDISM (3) Seizure Current Visit: Yes Status: Acute Code(s): R56.9 - UNSPECIFIED CONVULSIONS - Discharge Disposition: Home, Self-Care Condition: Stable Prescriptions: New Calcium Carb/Vitamin D 500 mg* [Calcium 500MG W/Vit D Tablet] 3 tab PO QID #120 tablet Continue calcitrioL [Calcitriol] 0.25 mcg PO TID Levothyroxine Sodium [Synthroid] 137 mcg PO HS OXcarbazepine [Trileptal] 600 mg PO HS Lisinopril 5 mg [Zestril 5 MG] 5 mg PO DAILY Outpatient Orders: CMP Time Frame: 1 Week, Facility: [facility], Location: LABORATORY Instructions: Hypoparathyroidism Additional Instructions: take calcium as directed, have labs done in 1 week at hospital or [place] lab. see Dr Aranda next week. Follow up with: ROSALEE ARANDA MD [Primary Care Provider] - Call for Appointment
[2021-08-24 08:32] VITALS: BP 150/90; PULSE 68; O2SAT 97
[2021-08-24] MEDS: Calcium 500MG W/Vit D Tablet PO SCH (09:47)
[2021-08-24] MEDS: NON-FORMULARY ITEM PO SCH (09:47)
[2021-08-24] MEDS: Zestril 5 MG PO SCH (09:47)
[2021-08-25 13:24] LABS: Calcitriol (1,25 di-OH Vit D) 11.8 pg/mL (19.9-79.3)
== END 2021-08-24 09:54 | disposition home or self-care (01) ==
LOC: ED 09:35 → MED SURG 15:44
PROVIDERS: ADMIT Family Medicine; ATTEND Family Medicine
DX: E83.51 Hypocalcemia (principal); E20.1 Pseudohypoparathyroidism; R56.9 Unspecified convulsions; I10 Essential (primary) hypertension; E78.00 Pure hypercholesterolemia, unspecified; Z79.899 Other long term (current) drug therapy; Z20.828 Contact with and (suspected) exposure to other viral communicable diseases
CPT/HCPCS: 0241U; 36000; 36415; 71045; 80053; 82330; 82652; 82947; 83735; 83880; 83970; 84100; 84132; 84443; 84484; 84550; 85025; 85027; 93005; 93041; 96374; 99285; 93268; J0610; J1940; J3475; J3480; A9270-GY; G0378